=== PATIENT | male | born 1995 | race Caucasian/White ===

== ENCOUNTER → 2024-04-21 | Outpatient (CLI) | payer OTHER, SELFPAY ==
--- NOTE | 2024-04-21 07:11 | US_ITS ---
PROCEDURE: ABD LIMITED W/ ELASTOGRAPHY REASON FOR EXAM: Fatty infiltration of the liver. COMPARISON: None. TECHNIQUE: Right upper quadrant abdominal ultrasound. Andreas ElastQ Imaging shear wave elastography for non-invasive assessment of liver tissue stiffness. Andreas EPIQ Elite. FINDINGS: LIVER: Size: Enlarged (hepatomegaly) Length: 20.4 cm cm Echotexture: Coarsened Contour: Normal Lesions: There is a 4.3 cm x 3.2 cm x 4.1 cm echogenic nodule in the right lobe of the liver suggestive of hemangioma. Elastography: EQI Med: 10.1 kPa EQI Med Naet: 1.82 m/s IQR/Med: 60 %* GALLBLADDER: Surgically absent. COMMON BILE DUCT: 5.4 mm . PANCREAS: Normal Visualized portions of the right kidney are unremarkable. No right upper quadrant ascites. US/ABD Limited w/ Elastography IMPRESSION: MODERATE TO SEVERE HEPATIC FIBROSIS Reference Values: SRU <1.37 m/s (5.7kPa): No to mild fibrosis 1.37 m/s - 2.2 m/s: Moderate to severe fibrosis >2.2 m/s (15kPa): Significant fibrosis / cirrhosis METAVIR Score F2 or higher: 1.34 m/s (5.7kPa) F3 or higher: 1.55 m/s (7.3kPa) F4: 1.80 m/s (10kPa) * If the IQR/Med is >30%, the variance in the measurements is a large and the a ccuracy of the measurement may be in question. Reading Location: [facility]
== END | disposition home or self-care (01) ==
LOC: US 07:10
PROVIDERS: PCP Student in an Organized Health Care Education/Training Program; Referring Provider Internal Medicine; Visit Provider Internal Medicine
DX: K75.81 Nonalcoholic steatohepatitis (NASH) (principal)
CPT/HCPCS: 76705; 76981